=== PATIENT | male | born 1940 | race African-American/Black ===

== ENCOUNTER 2017-07-29 11:27 | Emergency (ER) | payer MEDICARE, BC ==
[~2017-07-29] VITALS: Ht 180.3 cm; Wt 98.0 kg
[2017-07-29] MEDS ORDERED: SODIUM CHLORIDE 0.9% 1,000 ML IV ONE (14:18)
[2017-07-29 16:11] LABS: BASOPHILS % 0.4 % (0.0-2.0); EOSINOPHILS % 0.4 % (0.0-5.0); HEMATOCRIT. 42.6 % (42.0-52.0); HEMOGLOBIN. 14.8 g/dL (14.0-18.0); LYMPHOCYTES % 12.5 % (20.0-50.0); MEAN CORPUSCULAR HEMOGLOBIN 33.1 pg (28.0-32.0); MEAN CORPUSCULAR VOLUME 95.2 fL (80.0-94.0); MEAN PLATELET VOLUME 7.5 fl (7.4-10.4); NEUTROPHILS % 79.7 % (40.0-76.0); PLATELET 224 x1000/uL (130-400); RED BLOOD CELL COUNT 4.48 mill/uL (4.7-6.1); RED CELL DISTRIBUTION WIDTH 13.8 % (11.6-14.6)
[2017-07-29 16:16] LABS: CHLORIDE 102 mEq/L (98-107)
[2017-07-29 16:19] LABS: PARTIAL THROMBOPLASTIN TIME 26.8 sec (23.4-31.0); PROTHROMBIN TIME 10.7 sec (9.4-11.6)
[2017-07-29 16:26] LABS: KETONES URINE NEGATIVE (NEGATIVE); LEUKOCYTE ESTERASE URINE TRACE (NEGATIVE); NITRITE URINE NEGATIVE (NEGATIVE); OCCULT BLOOD URINE 3+ (NEGATIVE); PROTEIN URINE 1+ (NEGATIVE); SPECIFIC GRAVITY URINE 1.009 (1.005-1.030); UROBILINOGEN URINE 0.2 E.U./dL (0.2-1.0)
[2017-07-29 16:29] LABS: CLARITY URINE CLOUDY (CLEAR); COLOR URINE BLOODY (YELLOW)
[2017-07-29 16:57] VITALS: BP 169/84
== END 2017-07-29 17:32 | disposition home or self-care (01) ==
LOC: ER 14:06
DX: N40.1 Benign prostatic hyperplasia with lower urinary tract symptoms (principal); R33.8 Other retention of urine; R31.9 Hematuria, unspecified; I10 Essential (primary) hypertension; E78.00 Pure hypercholesterolemia, unspecified; Z88.0 Allergy status to penicillin
CPT/HCPCS: 36415; 51702; 76857; 80053; 81003; 83690; 85025; 85610; 85730; 86850; 86900; 86901; 96360; 96361; 99285; J7030

== ENCOUNTER → 2017-11-12 | Outpatient (CLI) | payer MEDICARE, BC | END | disposition home or self-care (01) | LOC: US 16:08 | PROVIDERS: ATTEND Internal Medicine Cardiovascular Disease | DX: I82.491 Acute embolism and thrombosis of other specified deep vein of right lower extremity (principal); R60.0 Localized edema | CPT/HCPCS: 93970 ==